=== PATIENT | female | born 1965 | race Caucasian/White ===

== ENCOUNTER 2018-03-12 12:49 | Day surgery (SDC) | payer OTHER ==
[2018-03-12] MEDS ORDERED: PROPOFOL 40 ML (13:35)
== END 2018-03-12 15:45 | disposition home or self-care (01) ==
LOC: GIL 12:49
DX: Z12.11 Encounter for screening for malignant neoplasm of colon (principal); K29.50 Unspecified chronic gastritis without bleeding; K21.0 Gastro-esophageal reflux disease with esophagitis; K26.9 Duodenal ulcer, unspecified as acute or chronic, without hemorrhage or perforation
CPT/HCPCS: 43239; 84703; 88305; 88312; 88313